=== PATIENT | female | born 1950 | race Caucasian/White ===

== ENCOUNTER 2018-09-02 15:30 | Emergency (ER) | payer SELFPAY ==
[~2018-09-02] VITALS: Wt 67.0 kg
[2018-09-02] MEDS ORDERED: DIPHTH/TET/ACEL PERTUSS (ADULT) 0.5 ML VIAL IM* ONE (17:30)
[2018-09-02] MEDS ORDERED: LIDOCAINE 1% (MDV) 20 ML INJ SC ONE (17:30)
[2018-09-02] MEDS ORDERED: ACETAMINOPHEN 325 MG TAB PO ONE (17:30)
[2018-09-02] MEDS ORDERED: IBUP-1542 PO (18:18)
[2018-09-02] MEDS ORDERED: CEPH-443 PO (18:18)
--- NOTE | 2018-09-02 18:22 | ERD ---
ER Documentation Chief Complaint Chief Complaint LEFT FOOT POSSIBLE FOREIGH BODY(GLASS) HPI 68-year-old female presents with a puncture wound left foot for the last 10 days. She feels there is possibly a piece of glass. She stepped on some glass after child broke a glass and did not clean out. Tetanus is not up-to-date. She denies any redness or fevers. ROS All systems reviewed and are negative except as per history of present illness. Medications Home Meds Active Scripts Cephalexin* (Keflex*) 500 Mg Capsule, 500 MG PO QID for 5 Days, CAP Prov:ADEEL KAPOOR MD 09/02/18 Ibuprofen* (Motrin*) 600 Mg Tab, 600 MG PO Q6, #15 TAB Prov:ADEEL KAPOOR MD 09/02/18 PMhx/Soc Medical and Surgical Hx: pt denies Medical Hx, pt denies Surgical Hx Hx Alcohol Use: No Hx Substance Use: No Hx Tobacco Use: No Smoking Status: Never smoker FmHx Family History: No diabetes, No coronary disease, No other Physical Exam Vitals Vital Signs Date Temp Pulse Resp B/P (MAP) Pulse Ox O2 O2 Flow FiO2 Time Delivery Rate 09/02/18 98.2 76 18 136/61 99 15:33 (86) Physical Exam Const: No acute distress Head: Atraumatic Eyes: Normal Conjunctiva ENT: Normal External Ears, Nose and Mouth. Neck: Full range of motion. No meningismus. Resp: Clear to auscultation bilaterally Cardio: Regular rate and rhythm, no murmurs Abd: Soft, non tender, non distended. Normal bowel sounds Skin: No petechiae or rashes Back: No midline or flank tenderness Ext: No cyanosis, or edema. Small sealed puncture wound with tenderness on the plantar surface metatarsal area of the left foot. No erythema, discharge or fluctuance. Neur: Awake and alert Psych: Normal Mood and Affect Results 24 hrs Current Medications Medications Dose Sig/Bienvenido Start Time Status Last (Trade) Ordered Route PRN Stop Time Admin Dose Reason Admin 650 mg ONCE ONCE 09/02/18 DC 09/02/18 Acetaminophen PO 17:30 17:17 (Tylenol 09/02/18 17:31 Tab) Lidocaine 20 ml ONCE ONCE 09/02/18 DC 09/02/18 (Xylocaine SC 17:30 17:17 1% (Mdv) 20 09/02/18 17:31 ml) Diphtheria/ 0.5 ml ONCE ONCE 09/02/18 DC 09/02/18 Tetanus/Acell IM* 17:30 17:18 Pertussis 09/02/18 17:31 (Adacel) Procedures/MDM X-ray left foot 3V Interpreted by me: Bones: No fracture Joints: No dislocation Foreign body: 5 millimeter foreign body deep in the left second metatarsal head area. Patient given a tetanus booster and Tylenol for pain. Left foot was prepped with Betadine. 3 cc lidocaine was used for local filtration. After incision and probing was unable to locate the foreign body which appears to be deep on the x-ray. 2 sutures were placed after unsuccessful attempt of removal of foreign body. Patient will be discharged home with recommendations for 2-day wound check 7 days suture removal and orthopedic evaluation for removal of foreign body under fluoroscopy or definitively. She should return for fevers, redness, new worsening symptoms. Departure Diagnosis: Primary Impression: Foreign body Condition: Stable Patient Instructions: Foreign Body, Soft Tissue [Not Removed] Referrals: ANTOINETTE CLARK MD Additional Instructions: There appears to be remaining foreign body deep foot which may require specialist. See orthopedist for further evaluation treatment for removal. Recheck in 2 days for infection. May need authorization from primary doctor for orthopedist visit. Cheque 2 mcdaniel para cheque para infeccion. cheque 7 mcdaniel para saca los puntos / grapas. Va al [facility] doctor/ specialista para mas evaluacon en el proximo semana. posiblemente necesita autorizado de [facility] doctor primario para specialista. Regresa para fiebre, o mas o nueva simptomas. ADEEL KAPOOR MD Sep 02, 2018 18:22
[2018-09-02 18:41] VITALS: BP 130/81; PULSE 79; RESP 18
== END 2018-09-02 18:42 | disposition home or self-care (01) ==
LOC: FTE 15:30
DX: S91.349A Puncture wound with foreign body, unspecified foot, initial encounter (principal); W25.XXXA Contact with sharp glass, initial encounter; Y92.9 Unspecified place or not applicable; Z23 Encounter for immunization
CPT/HCPCS: 90471; 90715

== ENCOUNTER 2018-09-04 10:34 | Emergency (ER) | payer SELFPAY ==
[~2018-09-04] VITALS: Wt 63.3 kg
[~2018-09-04 10:34] MED LIST: CEPH-443 PO; IBUP-1542 PO
[2018-09-04 10:38] VITALS: BP 130/60; PULSE 84; RESP 16
--- NOTE | 2018-09-04 11:48 | ERD ---
ER Documentation Chief Complaint Chief Complaint WOUND CHECK ON LEFT FOOT HPI 68-year-old female presents for recheck on a procedure done by me 2 days ago. She is noted to have a glass foreign body on x-ray. I was unable to satisfactorily remove it after incision and probing. She was discharged home with possible orthopedic follow-up for evaluation of definitive removal of foreign body. Patient has minimal pain. She is here for recheck on sutures. ROS All systems reviewed and are negative except as per history of present illness. Medications Home Meds Active Scripts Cephalexin* (Keflex*) 500 Mg Capsule, 500 MG PO QID for 5 Days, CAP Prov:ADEEL KAPOOR MD 09/02/18 Ibuprofen* (Motrin*) 600 Mg Tab, 600 MG PO Q6, #15 TAB Prov:ADEEL KAPOOR MD 09/02/18 PMhx/Soc Medical and Surgical Hx: pt denies Medical Hx, pt denies Surgical Hx Hx Alcohol Use: No Hx Substance Use: No Hx Tobacco Use: No Smoking Status: Never smoker FmHx Family History: No diabetes, No coronary disease, No other Physical Exam Vitals Vital Signs Date Temp Pulse Resp B/P (MAP) Pulse Ox O2 O2 Flow FiO2 Time Delivery Rate 09/04/18 97.3 84 16 130/60 98 10:38 (83) Physical Exam Const: No acute distress Head: Atraumatic Eyes: Normal Conjunctiva ENT: Normal External Ears, Nose and Mouth. Neck: Full range of motion. No meningismus. Resp: Clear to auscultation bilaterally Cardio: Regular rate and rhythm, no murmurs Abd: Soft, non tender, non distended. Normal bowel sounds Skin: No petechiae or rashes Back: No midline or flank tenderness Ext: No cyanosis, or edema. healing laceration on the plantar surface of the left foot. No erythema, discharge. Suture intact. Neur: Awake and alert Psych: Normal Mood and Affect Procedures/MDM X-ray left foot 3V Interpreted by me: Bones: No fracture Joints: No dislocation Foreign body: None. Impression-resolved radiopaque foreign body on the foot x-ray. Patient presents with recheck of the laceration status post attempt at glass foreign body removal 2 days ago. The foreign body appears to have resolved. This may have been due to the last amount of probing I performed after her original x-ray. foreign body may have spontaneously come out during that time with blood and not noticed. There is no current residual foreign body and no s igns of infection. Sutures removed and a small incision was sealed with Dermabond. Patient will be discharged home with return precautions for fevers, redness, new worsening symptoms otherwise with primary doctor. The patient was stable with no new comp laints during the ER course. Clinically, there is no current evidence to suggest meningitis, sepsis, acute abdomen, pneumonia, stroke, acute coronary syndrome, pulmonary embolism, aortic dissection or any other emergent condition appearing to require further evaluation or hospitalization. Patient counseled regarding my diagnostic impression and care plan. Prior to discharge all questions answered. Pt agrees with treatment plan and understands strict return precautions. Pt is instructed to follow up with primary care provider within 24- 48 hours. Precautionary instructions provided including instructions to return to the ER if not improving or for any worsening or changing symptoms or concerns. Departure Diagnosis: Primary Impression: Foreign body Condition: Stable Patient Instructions: Foreign Body, Soft Tissue (Removed) Additional Instructions: Glass foreign body not visualized on today's x-rays. Recheck for redness, swelling, new worsening symptoms. ADEEL KAPOOR MD Sep 04, 2018 11:48
== END 2018-09-04 12:09 | disposition home or self-care (01) ==
LOC: FTE 10:34
DX: Z48.01 Encounter for change or removal of surgical wound dressing (principal)